=== PATIENT | female | born 1980 | race Caucasian/White ===

== ENCOUNTER 2017-09-15 11:03 | Emergency (ER) | payer OTHER ==
[~2017-09-15] VITALS: Ht 152.4 cm; Wt 68.0 kg
[~2017-09-15 11:03] MED LIST: ALPR.25 PO; AMIT100 PO; CYCL-36 PO; DICL50 PO
[2017-09-15 11:04] VITALS: BP 130/93; PULSE 117; RESP 20; TEMP 99.5; O2SAT 100
[2017-09-15] MEDS ORDERED: AMIT100T2 PO (11:24)
[2017-09-15] MEDS ORDERED: FLUO-1 PO (11:24)
[2017-09-15] MEDS ORDERED: SODIUM CHLORIDE 0.9% FLUSH 10 ML FLUSH IV FLUSH PRN (11:30)
--- NOTE | 2017-09-15 11:33 | PD ---
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 Patient reports that she had a normal menstrual cycle originally then started having intermittent "gushing" of blood vaginally that would lighting up going through these various cycles. Patient reports pelvic pressure intermittently. Denies any radiation of the pain. Patient denies doing anything for this. Patient reports she had similar happen a few years ago and was seeing a explosives mixer operator who did a laparoscopic that showed mild endometriosis patient thinks she may have fibroids as well but is uncertain. Denies any fever, back pain, loss or change in bowel, or vaginal discharge prior to vaginal bleeding. Denies anything making symptoms better or worse. PFSH Past Medical History Anxiety: Yes Depression: Yes Influenza Vaccination: No ?: Not LMP: CURRENTLY ON PERIOD : 2 Para: 2 Past Surgical History Abdominal Surgery: Yes (EXP. LAP) Other Surgery: Yes (GROWTH REMOVED FROM BACK) Social History Alcohol Use: No Tobacco Use: No Substance Use: No Allergies-Medications (Allergen,Severity, Reaction): Coded Allergies: No Known Allergies (Verified Adverse Reaction, Unknown, 09/15/17) Reported Meds & Prescriptions Reported Meds & Active Scripts Active Reported Prozac (Fluoxetine HCl) 10 Mg Cap 10 Mg PO DAILY Amitriptyline (Amitriptyline HCl) 100 Mg Tab 100 Mg PO HS Review of Systems Except as stated in HPI: all other systems reviewed are Neg Physical Exam Narrative GENERAL: Well-developed, overly nourished, in no acute distress, and non-ill appearing. SKIN: Focused skin assessment warm and dry. HEAD: Atraumatic. Normocephalic. EYES: Pupils equal and round. EOMI. No scleral icterus. No injection or drainage. ENT: No nasal bleeding or discharge. Mucous membranes pink and moist. NECK: Trachea midline. No JVD. Supple. No nuclear rigidity. CARDIOVASCULAR: Regular rate and rhythm. No murmur appreciated. RESPIRATORY: No accessory muscle use. No respiratory distress. Clear to auscultation. Breath sounds equal bilaterally. GASTROINTESTINAL: Abdomen soft, non-tender, nondistended, and no guarding. Hepatic and splenic margins not palpable. Normal bowel sounds 4. No pulsatile mass. MUSCULOSKELETAL: No obvious deformities. No clubbing. No cyanosis. No edema. Full range of motion. NEUROLOGICAL: Awake and alert. No obvious cranial nerve deficits. Motor grossly within normal limits. Normal speech. PSYCHIATRIC: Appropriate mood and affect; insight and judgment normal. Data Data Last Documented VS Vital Signs Date Time Temp Pulse Resp B/P (MAP) Pulse Ox O2 Delivery O2 Flow Rate FiO2 09/15/17 14:59 09/15/17 11:04 99.5 117 20 100 Room Air Orders Orders Complete Blood Count With Diff (09/15/17 11:26) Comprehensive Metabolic Panel (09/15/17 11:26) Urinalysis - C+S If Indicated (09/15/17 11:26) Ed Urine Pregnancytest Poc (09/15/17 11:26) Gc And Chlamydia Pcr (09/15/17 11:26) Lipase (09/15/17 11:26) Iv Access Insert/Monitor (09/15/17 11:26) Ecg Monitoring (09/15/17 11:26) Oximetry (09/15/17 11:26) Sodium Chloride 0.9% Flush (Ns Flush) (09/15/17 11:30) Us Pelvis Comp W Transvaginal (09/15/17 ) Ed Discharge Order (09/15/17 14:17) Labs Laboratory Tests Test 09/15/17 12:15 09/15/17 12:50 Urine Color LIGHT-YELLOW Urine Turbidity CLEAR Urine pH 6.0 Urine Specific [place] 1.005 Urine Protein NEG mg/dL Urine Glucose (UA) NEG mg/dL Urine Ketones NEG mg/dL Urine Occult Blood LARGE Urine Nitrite NEG Urine Bilirubin NEG Urine Urobilinogen LESS THAN 2.0 MG/DL Urine Leukocyte Esterase NEG Urine RBC 7 /hpf Urine WBC 2 /hpf Urine Squamous Epithelial Cells <1 /hpf Urine Bacteria OCC /hpf Microscopic Urinalysis Comment CULT NOT INDICATED Chlamydia trachomatis DNA (PCR) NOT DETECTED Neisseria gonorrhoeae DNA (PCR) NOT DETECTED White Blood Count 7.1 TH/MM3 Red Blood Count 4.15 MIL/MM3 Hemoglobin 13.0 GM/DL Hematocrit 38.6 % Mean Corpuscular Volume 93.1 FL Mean Corpuscular Hemoglobin 31.4 PG Mean Corpuscular Hemoglobin Concent 33.7 % Red Cell Distribution Width 14.0 % Platelet Count 193 TH/MM3 Mean Platelet Volume 12.4 FL Neutrophils (%) (Auto) 70.9 % Lymphocytes (%) (Auto) 16.2 % Monocytes (%) (Auto) 6.9 % Eosinophils (%) (Auto) 5.5 % Basophils (%) (Auto) 0.5 % Neutrophils # (Auto) 5.0 TH/MM3 Lymphocytes # (Auto) 1.1 TH/MM3 Monocytes # (Auto) 0.5 TH/MM3 Eosinophils # (Auto) 0.4 TH/MM3 Basophils # (Auto) 0.0 TH/MM3 CBC Comment DIFF FINAL Differential Comment Blood Urea Nitrogen 12 MG/DL Creatinine 0.87 MG/DL Random Glucose 84 MG/DL Total Protein 7.7 GM/DL Albumin 4.0 GM/DL Calcium Level 8.6 MG/DL Alkaline Phosphatase 89 U/L Aspartate Amino Transf (AST/SGOT) 25 U/L Alanine Aminotransferase (ALT/SGPT) 27 U/L Total Bilirubin 0.3 MG/DL Sodium Level 135 MEQ/L Potassium Level 4.1 MEQ/L Chloride Level 103 MEQ/L Carbon Dioxide Level 28.2 MEQ/L Anion Gap 4 MEQ/L Estimat Glomerular Filtration Rate 73 ML/MIN Lipase 100 U/L MDM Medical Decision Making Medical Screen Exam Complete: Yes Emergency Medical Condition: Yes Differential Diagnosis UTI, fibroids, cysts, endometriosis, DUB, ectopic , metabolic disturbance, other Narrative Course Patient presented with vaginal bleeding and test is negative. There is no evidence to suggest ectopic nor retained products of conception at this time. Patient is stable and no clinical evidence of anemia. I suspect this may be due to DUB. Patient was instructed to follow up with ASSEMBLING INSPECTOR. She was given warnings to return if bleeding worsened, felt faint or passed out. The patient agreed with plan. Patient in no obvious distress upon re-evaluation. All pertinent laboratory/ Radiology result(s) discussed with patient/family. Discussed patient with Dr. Oviedo prior to discharge, who is in agreement with plan of care and disposition. Any questions/concerns in reference to patient diagnosis/ condition discussed and clarified prior to patient's discharge. Reinforced sheer importance of close follow up with patient's primary physician or primary care clinic and/or explosives mixer operator. Instructed patient to return to ED immediately , if symptoms return/worsen. Patient showed understanding of above instructions. Further instructions and recommendations were detailed in discharge paperwork. Patient ambulated without difficulty out of ED at discharge. Diagnosis Primary Impression: DUB (dysfunctional uterine bleeding) [facility] Patient Instructions: Dysfunctional Uterine Bleeding (ED), General Instructions Additional Instructions: Follow-up with your primary care physician and/or explosives mixer operator next week for reevaluation. Return to the emergency department if symptoms get worse. Disposition: 01 DISCHARGE HOME Condition: Stable Enzo Cabello Sep 15, 2017 11:33
[2017-09-15 12:50] LABS: BACTERIA, URINE OCC /hpf; BLOOD, URINE LARGE (NEG); COMMENT (UR) CULT NOT INDICATED; CULTURE IF INDICATED CULT NOT INDICATED; GLUCOSE,URINE NEG (NEG); KETONE, URINE NEG (NEG); NITRITE,URINE NEG (NEG); SQUAMOUS EPITHELIAL CELL URINE <1 /hpf (0-5); URINE COLOR LIGHT-YELLOW (YELLW/STRAW)
[2017-09-15 13:04] LABS: BASOPHIL % 0.5 % (0.0-2.0); EOSINOPHIL # 0.4 TH/MM3 (0-0.4); EOSINOPHIL % 5.5 % (0.0-4.0); HEMATOCRIT 38.6 % (35.0-46.0); HEMO FLAGS DIFF FINAL; LYMPH % 16.2 % (9.0-44.0); LYMPHOCYTE # 1.1 TH/MM3 (1.0-4.8); MEAN CELL VOLUME 93.1 FL (80.0-100.0); MEAN CORPUSCULAR HEMOGLOBIN 31.4 PG (27.0-34.0); MEAN CORPUSCULAR HGB CONC 33.7 % (32.0-36.0); MONO % 6.9 % (0.0-8.0); NEUT % 70.9 % (16.0-70.0); PLATELET COUNT 193 TH/MM3 (150-450); RED BLOOD COUNT 4.15 MIL/MM3 (4.00-5.30); WHITE BLOOD COUNT 7.1 TH/MM3 (4.0-11.0)
--- NOTE | 2017-09-15 13:09 | RADRPT ---
EXAM DATE/TIME: 09/15/2017 11:49 [facility] COMPARISON: No previous studies available for comparison. INDICATIONS : Pelvic pain. MEDICAL HISTORY : Depression. Anxiety. SURGICAL HISTORY : Exploratory laparoscopy. Growth removed from back. ENCOUNTER: Initial ACUITY: 2 weeks PAIN SCORE: 3/10 LOCATION: Bilateral pelvis MEASUREMENTS: UTERUS: 6.6 x 4.9 x 4.1 cm ENDOMETRIAL STRIPE: 1 mm RIGHT OVARY: 1.8 x 2.0 x 1.2 cm LEFT OVARY: 1.1 x 2.2 x 1.4 cm FINDINGS: UTERUS: The myometrium has homogeneous echotexture without mass. RIGHT OVARY: Ovary contains no mass or significant cystic lesion. LEFT OVARY: Images of the left ovary are somewhat limited due to the bowel gas. There is a 4 mm echogenic focus w ithout shadowing involving the ovary. The remaining aspects of the left ovary are unremarkable. MISCELLANEOUS: Trace amount of free fluid. CONCLUSION: 1. No acute abnormality. 2. Trace amount of free fluid. 3. 4 mm echogenic focus involving the left ovary. This is poorly characterized. It likely relates to a focus of calcification or fat. Riley Zuleta Jr., MD on September 15, 2017 at 13:02 Board Certified Radiologist. This report was verified electronically.
[2017-09-15 13:32] LABS: ALKALINE PHOSPHATASE 89 U/L (45-117); TOTAL BILIRUBIN ADULT 0.3 MG/DL (0.2-1.0)
[2017-09-15 13:43] LABS: ALT (GPT) 27 U/L (10-53); ANION GAP 4 MEQ/L (5-15); AST (GOT) 25 U/L (15-37); BICARBONATE 28.2 MEQ/L (21.0-32.0); BLOOD UREA NITROGEN 12 MG/DL (7-18); CHLORIDE 103 MEQ/L (98-107); GLOMERULAR FILTRATION RATE 73 ML/MIN (>89); SODIUM (NA) 135 MEQ/L (136-145)
[2017-09-15 13:45] LABS: POTASSIUM 4.1 MEQ/L (3.5-5.1)
[2017-09-15 14:44] LABS: CHLAMYDIA PCR NOT DETECTED (NOT DETECT); NEISSERIA PCR NOT DETECTED (NOT DETECT)
== END 2017-09-15 15:21 | disposition home or self-care (01) ==
LOC: NEPD 11:03
DX: N93.8 Other specified abnormal uterine and vaginal bleeding (principal); F41.9 Anxiety disorder, unspecified; F32.9 Major depressive disorder, single episode, unspecified; Z79.899 Other long term (current) drug therapy
CPT/HCPCS: 76830; 76856; 80053; 81001; 83690; 84703; 85025; 87491; 87591; 99285